=== PATIENT | female | born 1950 | race Caucasian/White ===

== ENCOUNTER → 2016-11-17 | Outpatient (CLI) | payer MEDICARE, OTHER ==
--- NOTE | 2016-11-17 11:24 | RADIOLOGY REPORT (SQ) ---
EXAM DESCRIPTION: KNEE LEFT 4 VIEW COMPLETED DATE/TIME: 11/17/2016 10:34 am REASON FOR STUDY: L KNEE PAIN M25.552 PAIN IN LEFT HIP M25.562 PAIN IN LEFT KNEE COMPARISON: None. NUMBER OF VIEWS: Four views. TECHNIQUE: AP, lateral, and both oblique radiographic images acquired of the left knee. LIMITATIONS: None. FINDINGS: MINERALIZATION: Normal. BONES: No acute fracture or dislocation. No worrisome bone lesions. JOINT: No suprapatellar knee joint effusion. Multiple small intra-articular loose bodies are seen al benito the posterior recess of the knee joint, dorsal to the distal femoral metaphysis. Moderate medial compartment, mild patellofemoral compartment joint space narrowing. Mild medial compartment and pat ellofemoral compartment bony spurring. SOFT TISSUES: No soft tissue swelling. No radio-opaque foreign body. OTHER: No other significant finding. IMPRESSION: No acute findings. Osteoarthritis patellofemoral and medial compartment left knee TECHNICAL DOCUMENTATION: JOB ID: [id number] [employer]- All Rights Reserved
--- NOTE | 2016-11-17 11:25 | RADIOLOGY REPORT (SQ) ---
EXAM DESCRIPTION: HIP LEFT AP/LATERAL COMPLETED DATE/TIME: 11/17/2016 10:34 am REASON FOR STUDY: L HIP PAIN M25.552 PAIN IN LEFT HIP M25.562 PAIN IN LEFT KNEE COMPARISON: None. NUMBER OF VIEWS: Two views. TECHNIQUE: AP pelvis and additional frog-leg view of the left hip. LIMITATIONS: None. FINDINGS: MINERALIZATION: Normal. LEFT HIP: No fracture or dislocation. Moderate joint space narrowing and bony spurring along the fem oral head and acetabular rim. RIGHT HIP: No fracture or dislocation. High-grade joint space narrowing, bulky bony spurring along t he right femoral head and acetabular rim. Large osteophyte along the inferior aspect of the right fe moral head PUBIS AND ISCHIUM: No fracture. PELVIS: No fracture. SACRUM: No fracture or dislocation. No worrisome bone lesions. LOWER LUMBAR SPINE: Disc space loss of height at L5-S1 with bilateral facet arthropathy at L4-5 and L 5-S1 SOFT TISSUES: No findings. OTHER: No other significant finding. IMPRESSION: Osteoarthritis both hips, right greater than left. No acute fracture left hip TECHNICAL DOCUMENTATION: JOB ID: [id number]- All Rights Reserved
== END ==
LOC: RAD 09:59
PROVIDERS: ATTEND Family Medicine Geriatric Medicine
DX: M25.552 Pain in left hip (principal); M25.562 Pain in left knee; M16.0 Bilateral primary osteoarthritis of hip; M17.12 Unilateral primary osteoarthritis, left knee

== ENCOUNTER → 2017-05-15 | Outpatient (CLI) | payer MEDICARE, OTHER ==
--- NOTE | 2017-05-15 19:13 | WOMENS IMAGING REPORT ---
EXAM DESCRIPTION: BILAT SCREENING MAMMO W/CAD COMPLETED DATE/TIME: 05/15/2017 2:57 pm REASON FOR STUDY: SCREENING MAMMO Z12.31 ENCNTR SCREEN MAMMOGRAM FOR MALIGNANT NEOPLASM OF CARMEN COMPARISON: Multiple since 2009 TECHNIQUE: Standard craniocaudal and mediolateral oblique views of each breast recorded using digita l acquisition. LIMITATIONS: None. FINDINGS: No masses, calcifications or architectural distortion. No areas of suspicion. Read with the assistance of CAD. .[facility] - R2 Cenova Version 1.3 .[facility] - R2 Cenova Version 1.3 .[facility] - R2 Cenova Version 2.4 .[facility] - R2 Cenova Version 2.4 .[facility] - R2 Whiskey [employer]terer Version 9.2 IMPRESSION: NORMAL MAMMOGRAM. BIRADS 1. BREAST DENSITY: a. The breasts are almost entirely fatty. BIRAD: 1 NEGATIVE RECOMMENDATION: ROUTINE SCREENING Please continue yearly screening in April 2018. Please consider bilateral screening tomosynthesis COMMENT: The patient has been notified of the results by letter per SA requirements. Additional no tification policies are in place for contacting patient with suspicious or incomplete findings. Quality ID #225: The [employer] recommends an annual screening mammogram for women aged 40 years or over. This facility utilizes a reminder system to ensure that all patients receive reminder letters, and/or direct phone calls for appointments. This includes reminders for routine scr eening mammograms, diagnostic mammograms, or other Breast Imaging Interventions when appropriate. Th is patient will be placed in the appropriate reminder system. The [employer] (ACR) has developed recommendations for screening MRI of the breast s in certain patient populations, to be used in conjunction with mammography. Breast MRI surveillanc e may be appropriate for women with more than 20% lifetime risk of developing breast cancer as deter mined by genetic testing, significant family history of the disease, or history of mantle radiation f or Hodgkins Disease. ACR Practice Guidelines 2008. TECHNICAL DOCUMENTATION: FINDING NUMBER: (1) ASSESSMENT: (1) JOB ID: [id number] [employer]- All Rights Reserved Reading location - IP/workstation name: [email or web address]
== END ==
LOC: WI 13:31
PROVIDERS: ATTEND Family Medicine Geriatric Medicine
DX: Z12.31 Encounter for screening mammogram for malignant neoplasm of breast (principal)
CPT/HCPCS: 77067

== ENCOUNTER → 2017-05-15 | Outpatient (CLI) | payer MEDICARE, OTHER ==
--- NOTE | 2017-05-15 14:39 | RADIOLOGY REPORT (SQ) ---
EXAM DESCRIPTION: CHEST PA/LAT COMPLETED DATE/TIME: 05/15/2017 2:12 pm REASON FOR STUDY: R05 COUGH COMPARISON: Two-view chest 05/14/2015, 12/21/2008 EXAM PARAMETERS: NUMBER OF VIEWS: two views TECHNIQUE: Digital Frontal and Lateral radiographic views of the chest acquired. RADIATION DOSE: NA LIMITATIONS: none FINDINGS: LUNGS AND PLEURA: No opacities, masses or pneumothorax. No pleural effusion. MEDIASTINUM AND HILAR STRUCTURES: No masses or contour abnormalities. HEART AND VASCULAR STRUCTURES: Heart normal size. No evidence for failure. BONES: No acute findings. HARDWARE: None in the chest. OTHER: No other significant finding. IMPRESSION: NO SIGNIFICANT RADIOGRAPHIC FINDING IN THE CHEST. TECHNICAL DOCUMENTATION: JOB ID: [id number] [employer]- All Rights Reserved Reading location - IP/workstation name: [email or web address]
== END ==
LOC: RAD 13:57
PROVIDERS: ATTEND Family Medicine Geriatric Medicine
DX: R05 Cough (principal)
CPT/HCPCS: 71046

== ENCOUNTER 2017-11-10 10:06 | Day surgery (SDC) | payer MEDICARE, OTHER ==
[~2017-11-10 10:06] MED LIST: BUPIVACAINE HCL 0.75% INJ/PF (7.5 MG/1 ML) 10 ML SDV OS PRN; FENTANYL CITRATE INJ/PF 100 MCG/2 ML AMPUL ONE; KETOROLAC TROMETHAMINE 0.45% 4 DROP/0.4 ML DROPERETTE OS PRN; LIDOCAINE 4% INJ/PF (40 MG/ML) 5 ML AMPUL OS PRN; MIDAZOLAM 2 MG/2 ML INJ ONE
[2017-11-10] MEDS: CYCLOPENTOLATE 0.2%/PHENYLEPHRINE 1% OPH SOLN 2 ML OS PRN ×3 (11:14→11:35)
[2017-11-10] MEDS: BESIFLOXACIN HCL 0.6% OPH SUSP 5 ML BOTTLE OS PRN ×4 (11:14→12:25)
[2017-11-10] MEDS: TROPICAMIDE 1% OPH SOLN 3 ML OS PRN ×3 (11:14→11:35)
[2017-11-10] MEDS: TETRACAINE HCL 0.5% OPH SOLN 0.6 ML DROPERETTE OS PRN ×2 (11:15→11:35)
[2017-11-10] MEDS: CHONDR SU A NA/HYALUR INTRAOC KIT (SURGICARE) ONE ×2 (12:13)
[2017-11-10] MEDS: EPINEPHRINE INJ/PF 1 MG/1 ML AMPULE ONE ×2 (12:13)
[2017-11-10] MEDS ORDERED: LIDOCAINE 1% INJ-PF (10 MG/ML) 30 ML SDV ONE (12:30)
--- NOTE | 2017-11-10 12:41 | [facility] OPERATIVE REPORT E ---
[facility] Operative Report NAME: LISY LANGLEY AGE: 67Y DATE OF SURGERY: 11/10/2017 ROOM: PREOPERATIVE DIAGNOSIS: Cataract, left eye. POSTOPERATIVE DIAGNOSIS: Cataract, left eye. PROCEDURE PERFORMED: Phacoemulsification with posterior chamber intraocular lens, left eye. SURGEON: BERTHA PEARCE M.D. ANESTHESIA: Topical with MAC. INDICATIONS FOR SURGERY: Difficulty reading words on TV. Best corrected visual acuity 20/60. PROCEDURE: The patient was brought to the operating room and placed on the operative table. Following tetracaine drops, topical anesthesia was administered. This consisted of instrument wipe pledgets soaked in a solution of 4% Xylocaine mixed with 0.75% Marcaine in a 1:2 ratio. A 2 x 1 cm pledget was placed in the superior fornix. A 1 x 1 cm pledget was placed in the inferior fornix. The eye was patched shut for 5 minutes. The patch was removed. The eye was sterilely prepped and draped in the usual manner. Lid speculum was placed in the eye. The pledgets were removed and 4-0 black silk sutures were placed around the superior and the inferior rectus muscles to be used as traction. A conjunctival peritomy was made at the 10 o'clock position. Hemostasis was obtained with bipolar cautery. A posterior limbal groove was created using a crescent knife and dissected anteriorly towards the cornea. A sharp point blade was used to create a paracentesis site at the 2 o'clock position. A 2.4 mm keratome was used to enter the anterior chamber through the groove. Viscoelastic was injected into the anterior chamber. An anterior capsulotomy was performed using Utrata forceps in a capsulorrhexis fashion. Hydrodissection and hydrodelineation were performed. Phacoemulsification was performed in ygytsd-hlg-maphqbo technique. Total phaco time was 4.91 CDE. Following this, the I/A unit was used to remove residual cortex. Viscoelastic was injected into the capsular bag. Intraocular lens model [id number], 17.5 diopters, serial number [id number], was placed in the capsular bag. The I/A unit was used to remove residual viscoelastic. The wound was seen to be watertight under high and low pressure, and no sutures were placed. The intraocular lens was well centered. The pressure was adjusted in the eye to normal pressure. The 4-0 black silk sutures and lid speculum were removed. The eye was shielded after Besivance drops were placed. The patient tolerated the procedure well and was sent to the recovery room in good condition. DICTATING PHYSICIAN: BERTHA PEARCE M.D. [id number] PHY#: [id number] ID: [id number] JOB#: [id number] ACCT: [id number] cc:BERTHA PEARCE M.D. >
--- NOTE | 2017-11-10 12:41 | [facility] DISCHARGE SUMMARY E ---
[facility] Discharge Summary NAME: LISY LANGLEY AGE: 67Y ADMITTED: 11/10/2017 DISCHARGED: 11/10/2017 FINAL DIAGNOSIS: Cataract, left eye. HOSPITAL COURSE: The patient is a 67-year-old lady who underwent uneventful cataract extraction with intraocular lens implant, left eye, on 11/10/2017. She will be discharged to home. She was instructed to resume preoperative medications; to take Tylenol as needed for discomfort; to keep her eye shielded; to use Durezol, Prolensa, and Besivance at 3 p.m. and 8 p.m.; and to follow up in my office in 1 day. DICTATING PHYSICIAN: BERTHA PEARCE M.D. [id number] PHY#: [id number] ID: [id number] JOB#: [id number] ACCT: [id number] cc:BERTHA PEARCE M.D. >
== END 2017-11-10 13:01 | disposition home or self-care (01) ==
LOC: SC 10:06
PROVIDERS: ATTEND Ophthalmology
DX: H25.812 Combined forms of age-related cataract, left eye (principal); H35.3221 Exudative age-related macular degeneration, left eye, with active choroidal neovascularization; H35.3111 Nonexudative age-related macular degeneration, right eye, early dry stage; H40.053 Ocular hypertension, bilateral; H10.45 Other chronic allergic conjunctivitis; Z96.1 Presence of intraocular lens; H52.4 Presbyopia; E78.00 Pure hypercholesterolemia, unspecified; M19.90 Unspecified osteoarthritis, unspecified site; I10 Essential (primary) hypertension; I51.9 Heart disease, unspecified; Z87.891 Personal history of nicotine dependence; Z79.82 Long term (current) use of aspirin; Z79.1 Long term (current) use of non-steroidal anti-inflammatories (NSAID); Z79.899 Other long term (current) drug therapy
CPT/HCPCS: 66984; V2632; J2250; J3490 ×4; A9270; J0171; 142; J3010

== ENCOUNTER → 2018-04-20 | Outpatient (CLI) | payer MEDICARE, OTHER ==
--- NOTE | 2018-04-20 11:31 | RADIOLOGY REPORT (SQ) ---
EXAM DESCRIPTION: HIP BILATERAL COMPLETED DATE/TIME: 04/20/2018 10:51 am REASON FOR STUDY: YUDI HIP PAIN, LOW BACK PAIN M25.551 PAIN IN RIGHT HIP M54.5 LOW BACK PAIN COMPARISON: None. NUMBER OF VIEWS: Two views. TECHNIQUE: AP pelvis and additional frog-leg view of the right and left hip. LIMITATIONS: None. FINDINGS: MINERALIZATION: Normal. PRIMARY HIP: Right hip demonstrates extensive degenerative changes joint space loss, bone on bone con tact, osteophytosis and subchondral sclerosis. No evidence of acute osseous abnormality. OPPOSITE HIP: There is moderate degenerative changes of the left hip with moderate joint space loss, subchondral sclerosis and osteophytosis PUBIS AND ISCHIUM: No fracture. PELVIS: No fracture. SACRUM: No fracture or dislocation. No worrisome bone lesions. LOWER LUMBAR SPINE: Lower lumbar spondylosis. No acute fracture. SOFT TISSUES: Scattered pelvic phleboliths. OTHER: No other significant finding. IMPRESSION: Severe right and moderate to severe left hip osteoarthritis. There is bone on bone cont act on the right. No evidence of acute bony abnormality. TECHNICAL DOCUMENTATION: JOB ID: [id number] [employer]- All Rights Reserved Reading location - IP/workstation name: [email or web address]
--- NOTE | 2018-04-20 13:37 | RADIOLOGY REPORT (SQ) ---
EXAM DESCRIPTION: SACRUM AND COCCYX COMPLETED DATE/TIME: 04/20/2018 10:51 am REASON FOR STUDY: YUDI HIP PAIN, LOW BACK PAIN M25.551 PAIN IN RIGHT HIP M54.5 LOW BACK PAIN COMPARISON: Same day radiograph NUMBER OF VIEWS: Three views. TECHNIQUE: AP, lateral, and tilt views of the sacrum and coccyx. LIMITATIONS: None. FINDINGS: MINERALIZATION: Normal. BONES: Degenerative changes at the hips, right greater than left. No acute bony abnormality. SOFT TISSUES: Scattered vascular calcifications. Pelvic phleboliths. OTHER: Mild lower lumbar degenerative change and facet arthropathy. IMPRESSION: No evidence of acute bony abnormality. Degenerative change at the hips, better evaluated on same day hip radiographs. TECHNICAL DOCUMENTATION: JOB ID: [id number] [employer]- All Rights Reserved Reading location - IP/workstation name: [email or web address]
== END ==
LOC: RAD 10:28
PROVIDERS: ATTEND Family Medicine Geriatric Medicine
DX: M25.551 Pain in right hip (principal); M54.5 Low back pain; M16.0 Bilateral primary osteoarthritis of hip
CPT/HCPCS: 72220; 73522

== ENCOUNTER 2018-07-12 04:05 | Observation (INO) | payer MEDICARE, OTHER ==
--- NOTE | 2018-07-12 08:57 | RADIOLOGY REPORT (SQ) ---
EXAM DESCRIPTION: CHEST SINGLE VIEW COMPLETED DATE/TIME: 07/12/2018 8:50 am REASON FOR STUDY: chest pain COMPARISON: 05/15/2017 EXAM PARAMETERS: NUMBER OF VIEWS: One view. TECHNIQUE: Single frontal radiographic view of the chest acquired. RADIATION DOSE: NA LIMITATIONS: None. FINDINGS: LUNGS AND PLEURA: No opacities, masses or pneumothorax. No pleural effusion. MEDIASTINUM AND HILAR STRUCTURES: No masses. Contour normal. HEART AND VASCULAR STRUCTURES: Heart normal in size. Normal vasculature. BONES: No acute findings. HARDWARE: None in the chest. OTHER: No other significant finding. IMPRESSION: 1. No significant interval changes since the previous examination dated 05/15/2017. No acute findings. TECHNICAL DOCUMENTATION: JOB ID: [id number] [employer]- All Rights Reserved Reading location - IP/workstation name: [email or web address]
[2018-07-12 09:30] LABS: ABSOLUTE BASOPHILS # (AUTO) 0.1 10^3/uL (0.0-0.2); ABSOLUTE LYMPHOCYTES (AUTO) 1.7 10^3/uL (0.5-4.7); ABSOLUTE MONOCYTES (AUTO) 0.5 10^3/uL (0.1-1.4); ABSOLUTE NEUT (AUTO) 5.3 10^3/uL (1.7-8.2); BASOPHILS % (AUTO) 0.7 % (0-2); EOSINOPHILS % (AUTO) 0.6 % (0-6); HEMATOCRIT 45.4 % (36.0-47.0); HEMOGLOBIN 15.6 g/dL (12.0-15.5); LYMPHOCYTES % (AUTO) 22.7 % (13-45); MEAN CORPUSCULAR HEMOGLOBIN 32.7 pg (27.0-33.4); MEAN CORPUSCULAR HGB CONC 34.3 g/dL (32.0-36.0); MEAN CORPUSCULAR VOLUME 95 fl (80-97); MONOCYTES % (AUTO) 6.5 % (3-13); PLATELET COUNT 270 10^3/uL (150-450); RED BLOOD COUNT 4.76 10^6/uL (3.72-5.28); RED CELL DISTRIBUTION WIDTH 13.8 % (11.5-14.0); SEGMENTED NEUTROPHILS % (AUTO) 69.5 % (42-78); TOTAL CELLS COUNTED % (AUTO) 100 %; WHITE BLOOD COUNT 7.7 10^3/uL (4.0-10.5)
[2018-07-12 09:33] LABS: APPEARANCE,URINE SLIGHTLY-CLOUDY; BILIRUBIN,URINE NEGATIVE (NEGATIVE); COLOR,URINE YELLOW; GLUCOSE, URINE NEGATIVE (NEGATIVE); KETONES,URINE 20 mg/dL (NEGATIVE); LEUKOCYTE ESTERASE,URINE TRACE (NEGATIVE); NITRITE,URINE NEGATIVE (NEGATIVE); PROTEIN,URINE 30 mg/dL (NEGATIVE); URINE SPECIFIC GRAVITY 1.019; UROBILINOGEN,URINE NEGATIVE mg/dL (<2.0)
[2018-07-12 09:34] LABS: ALANINE AMINOTRANSFERASE 26 U/L (9-52); ALBUMIN 4.5 g/dL (3.5-5.0); ALKALINE PHOSPHATASE 92 U/L (38-126); ANION GAP 10 (5-19); ASPARTATE AMINO TRANSFERASE 31 U/L (14-36); BILIRUBIN,DIRECT 0.3 mg/dL (0.0-0.4); BILIRUBIN,TOTAL 0.5 mg/dL (0.2-1.3); BLOOD UREA NITROGEN 9 mg/dL (7-20); CALCIUM 10.1 mg/dL (8.4-10.2); CARBON DIOXIDE 28 mmol/L (22-30); CHLORIDE 105 mmol/L (98-107); CREATINE KINASE 81 U/L (30-135); GLUCOSE 127 mg/dL (75-110); POTASSIUM 3.3 mmol/L (3.6-5.0); SODIUM 142.8 mmol/L (137-145); TOTAL PROTEIN 7.8 g/dL (6.3-8.2)
[2018-07-12 09:43] LABS: CREATINE KINASE MB 0.76 ng/mL (<4.55)
[2018-07-12 09:45] LABS: TROPONIN I < 0.012 ng/mL
--- NOTE | 2018-07-12 11:11 | ER Document Report ---
Entered by LUCY BARAJAS SCRIBE 07/12/18 0844 Acting as scribe for:SHAWN MADSEN MD ED General - General Chief Complaint: General Weakness Stated Complaint: WEAKNESS Time Seen by Provider: 07/12/18 08:22 Primary Care Provider: MEHRAN BAIRD MD [Primary Care Provider] - Follow up as needed Mode of Arrival: Ambulatory Information source: Patient Notes: Patient is a 68 year old female with macular degeneration, HTN presents to the emergency department complaining of chest pain onset this morning. Patient's associated symptoms include weakness, dizziness, and diaphoresis. Patient states she was awoken from her sleep with sharp left sided chest pain under her left breast with a severity of a 9/10. She states the pain radiated into her left scapular area and last approximately 45 minutes. She states during that time she was very dizzy and weak further stating "my arms felt like 3,000 lbs". She states she proceeded to take her blood pressure which was noted to be 196/120 and consumed juice. She states she is currently feeling much better. Patient's PCP is Dr. Baird. Patient reports that she did take 4 baby aspirin and drank some juice when she had the pain. She is thinking that some of the symptoms might of been due to low blood sugar so that is the reason for the juice. TRAVEL OUTSIDE OF THE [place] IN LAST 30 DAYS: No - Related Data Allergies/Adverse Reactions: Iodinated Contrast- Oral and IV Dye Allergy (Severe, Verified 11/10/17 11:19) Anaphylaxis Past Medical History - General Information source: Patient - Social History Smoking Status: Never Smoker Cigarette use (# per day): No Chew tobacco use (# tins/day): No Smoking Education Provided: No Frequency of alcohol use: None Lives with: Spouse/Significant other Family History: CAD - Mother 1st GA in mid 70s. CABG., Malignancy - Father - Past Medical History Cardiac Medical History: Reports: Hx Hypercholesterolemia, Hx Hypertension EENT Medical History: Reports: Eyes - Macular degeneration. Past Surgical History: Reports: Other - Bilateral cataract surgery Review of Systems - Review of Systems Constitutional: See HPI, Diaphoresis, Weakness EENT: Other - Poor vision at night Cardiovascular: See HPI, Chest pain, Dizziness Respiratory: No symptoms reported Gastrointestinal: No symptoms reported Genitourinary: No symptoms reported Female Genitourinary: No symptoms reported Musculoskeletal: See HPI, Back pain Skin: No symptoms reported Neurological/Psychological: No symptoms reported -: Yes All other systems reviewed and negative Physical Exam - Vital signs Vitals: Temp Pulse Resp BP Pulse Ox 98.0 F 71 18 195/96 H 96 07/12/18 04:37 07/12/18 04:37 07/12/18 04:37 07/12/18 04:37 07/12/18 04:37 - Notes Notes: GENERAL: Alert, interacts well. No acute distress. HEAD: Normocephalic, atraumatic. EYES: Pupils equal, round, and reactive to light. Extraocular movements intact. ENT: Oral mucosa moist, tongue midline. NECK: Full range of motion. Supple. Trachea midline. LUNGS: Clear to auscultation bilaterally, no wheezes, rales, or rhonchi. No respiratory distress. HEART: Regular rate and rhythm. No murmurs, gallops, or rubs. ABDOMEN: Soft, obese, non-tender. Non-distended. Bowel sounds present in all 4 quadrants. No guarding, rigidity, or rebound. EXTREMITIES: Moves all 4 extremities spontaneously. No edema. No cyanosis. NEUROLOGICAL: Alert and oriented x3. Normal speech. PSYCH: Normal affect, normal mood. SKIN: Warm, dry, normal turgor. No rashes or lesions noted. BACK: No tenderness to palpation. Course - Vital Signs Vital signs: Temp Pulse Resp BP Pulse Ox 98.3 F 74 12 162/78 H 95 07/12/18 07:51 07/12/18 07:51 07/12/18 10:02 07/12/18 10:02 07/12/18 10:02 - Laboratory Result Diagrams: 07/12/18 09:03 07/12/18 09:03 Laboratory results interpreted by me: 07/12/18 07/12/18 07/12/18 09:03 09:03 09:03 Hgb 15.6 H Potassium 3.3 L Glucose 127 H Urine Protein 30 H Urine Ketones 20 H Ur Leukocyte Esterase TRACE H Urine Ascorbic Acid 40 H - Diagnostic Test Radiology reviewed: Image reviewed, Reports reviewed - Chest x-ray does not show acute cardiopulmonary process - EKG Interpretation by Tn EKG shows normal: Sinus rhythm, [place], Intervals, QRS Complexes, ST-T Waves Rate: Normal - 76 Rhythm: NSR [place]/QRS: Left axis deviation - Consults Dr. Lovell Time consulted: 10:55 Consulted provider: will come to ER Discharge - Discharge Clinical Impression: Chest pain Qualifiers: Chest pain type: unspecified Qualified Code(s): R07.9 - Chest pain, unspecified High blood pressure Qualifiers: Hypertension type: essential hypertension Qualified Code(s): I10 - Essential (primary) hypertension Condition: Stable Disposition: ADMITTED INPATIENT Admitting Provider: Liliya (Hospitalist) Unit Admitted: Telemetry Referrals: MEHRAN BAIRD MD [Primary Care Provider] - Follow up as needed Scribe Attestation: 07/12/18 08:49 I personally performed the services described in the documentation, reviewed and edited the documentation which was dictated to the scribe in my presence, and it accurately records my words and actions. I personally performed the services described in the documentation, reviewed and edited the documentation which was dictated to the scribe in my presence, and it accurately records my words and actions.
[2018-07-12] MEDS ORDERED: LISINOPRIL 10 MG TABLET PO ONE (12:29)
[2018-07-12] MEDS: HYDROCHLOROTHIAZIDE 25 MG TABLET PO SCH (13:08)
--- NOTE | 2018-07-12 15:24 | EKG REPORT ---
SEVERITY:- ABNORMAL ECG - SINUS RHYTHM BORDERLINE LEFT AXIS DEVIATION NONSPECIFIC ST-T CHANGES- INFERIOR LEADS : Confirmed by: Naren Koo MD 12-Jul-2018 15:23:19
[2018-07-12 15:44] LABS: CREATINE KINASE MB 0.57 ng/mL (<4.55)
[2018-07-12 15:48] LABS: TROPONIN I < 0.012 ng/mL
[2018-07-12] MEDS ORDERED: IBUPROFEN 400 MG TABLET PO PRN (16:25)
--- NOTE | 2018-07-12 16:32 | PDOC H&P ---
History of Present Illness Admission Date/PCP: 07/12/18 11:15 MEHRAN LEON MD Patient complains of: Chest pain History of Present Illness: LISY LANGLEY is a 68 year old female who has had multiple EKGs as well as stress test and echocardiogram in the past. This was due to a "abnormal "EKG. She woke up from her sleep last night. She was very diaphoretic. She had a sharp pain from under her left breast through to the back. Her arms felt very heavy. She was experiencing a tingling sensation in her arms. She took 4 baby aspirin and this did give her relief. The pain lasted for proximally 45 minutes and resolved in the emergency department. The heaviness and tingling in her arms persisted for several hours. She had no associated shortness of breath or nausea. No symptoms radiated to her jaw. She denies any sense of chest pressure. She states that in the past she has had stress test and echocardiogram for what is felt to be an abnormal EKG but these have always been negative. Past Medical History Cardiac Medical History: Reports: Hyperlipidema, Hypertension Denies: Myocardial Infarction Pulmonary Medical History: Denies: Asthma EENT Medical History: Reports: Eyes - Macular degeneration. Neurological Medical History: Denies: Seizures GI Medical History: Denies: Hepatitis, Hiatal Hernia Skin Medical History: Reports: Other - Rosacea Hematology: Denies: Anemia, Sickle Cell Disease Past Surgical History Past Surgical History: Reports: Other - Bilateral cataract surgery Denies: Amputation, Mastectomy, Pacemaker Social History Information Source: Patient Lives with: Spouse/Significant other Smoking Status: Former Smoker Last Time Smoked: 2015 Frequency of Alcohol Use: None Hx Recreational Drug Use: No Hx Prescription Drug Abuse: No - Advance Directive Resuscitation Status: Full Code Surrogate healthcare decision maker:: The patient does not have a healthcare power of traffic law attorney at this time. Her is disabled. It would be excellent planning to establish such a document. Family History Family History: CAD - Mother 1st MD in mid 70s. CABG., Malignancy - Father Parental Family History Reviewed: Yes Children Family History Reviewed: Yes Sibling(s) Family History Reviewed.: Yes Medication/Allergy Home Medications: Ergocalciferol (Vitamin D2) [Drisdol 50,000 unit (1.25MG) Capsule] 50,000 unit PO MO@0800 07/12/18 Ezetimibe [Zetia 10 mg Tablet] 10 mg PO DAILY 07/12/18 Allergies/Adverse Reactions: Iodinated Contrast- Oral and IV Dye Allergy (Severe, Verified 11/10/17 11:19) Anaphylaxis Review of Systems Constitutional: PRESENT: night sweats. ABSENT: anorexia, fever(s), weight gain, weight loss Eyes: ABSENT: visual disturbances Ears: ABSENT: hearing changes Nose, Mouth, and Throat: ABSENT: mouth pain, sore throat Cardiovascular: PRESENT: chest pain. ABSENT: orthropnea, palpitations Respiratory: ABSENT: cough, sputum Gastrointestinal: ABSENT: abdominal pain, constipation, diarrhea, nausea, vomiting Genitourinary: ABSENT: dysuria, hematuria Integumentary: ABSENT: diaphoresis, erythema, rash Neurological: ABSENT: abnormal speech, confusion, frequent falls, memory loss, restless legs, tremor(s), vertigo Psychiatric: ABSENT: anxiety, depression Endocrine: ABSENT: cold intolerance, heat intolerance Hematologic/Lymphatic: ABSENT: easy bleeding, easy bruising Physical Exam Vital Signs: Temp Pulse Resp BP Pulse Ox 98.3 F 74 12 162/78 H 95 07/12/18 07:51 07/12/18 07:51 07/12/18 10:02 07/12/18 10:02 07/12/18 10:02 Intake & Output 07/11/18 07/12/18 07/13/18 06:59 06:59 06:59 Weight 109.2 kg General appearance: PRESENT: no acute distress, cooperative, obese, well- developed Head exam: PRESENT: atraumatic, normocephalic Eye exam: PRESENT: conjunctiva pink, EOMI. ABSENT: scleral icterus Mouth exam: PRESENT: dry mucosa, tongue midline Teeth exam: ABSENT: poor dentation Neck exam: PRESENT: full ROM. ABSENT: carotid bruit, JVD, lymphadenopathy Respiratory exam: PRESENT: clear to auscultation josh, symmetrical, unlabored. ABSENT: rales, rhonchi, tachypnea, wheezes Cardiovascular exam: PRESENT: RRR, +S1, +S2 GI/Abdominal exam: PRESENT: normal bowel sounds, soft. ABSENT: distended, tenderness Rectal exam: PRESENT: deferred Gentrourinary exam: ABSENT: indwelling catheter Extremities exam: ABSENT: calf tenderness, pedal edema Neurological exam: PRESENT: alert, awake, oriented to person, oriented to place, oriented to time, oriented to situation, CN II-XII grossly intact Psychiatric exam: PRESENT: appropriate affect, normal mood. ABSENT: agitated, anxious Focused psych exam: ABSENT: delusional, restlessness Results Laboratory Results: 07/12/18 09:03 07/12/18 09:03 07/12/18 07/12/18 07/12/18 09:03 09:03 09:03 WBC 7.7 RBC 4.76 Hgb 15.6 H Hct 45.4 MCV 95 MCH 32.7 MCHC 34.3 RDW 13.8 Plt Count 270 Seg Neutrophils % 69.5 Lymphocytes % 22.7 Monocytes % 6.5 Eosinophils % 0.6 Basophils % 0.7 Absolute Neutrophils 5.3 Absolute Lymphocytes 1.7 Absolute Monocytes 0.5 Absolute Eosinophils 0.0 Absolute Basophils 0.1 Sodium 142.8 Potassium 3.3 L Chloride 105 Carbon Dioxide 28 Anion Gap 10 BUN 9 Creatinine 0.53 Est GFR ( Amer) > 60 Est GFR (Non-Af Amer) > 60 Glucose 127 H Calcium 10.1 Total Bilirubin 0.5 AST 31 ALT 26 Alkaline Phosphatase 92 Total Protein 7.8 Albumin 4.5 Urine Color YELLOW Urine Appearance SLIGHTLY-CLOUDY Urine pH 6.0 Ur Specific [place] 1.019 Urine Protein 30 H Urine Glucose (UA) NEGATIVE Urine Ketones 20 H Urine Blood NEGATIVE Urine Nitrite NEGATIVE Ur Leukocyte Esterase TRACE H Urine WBC (Auto) 4 Urine RBC (Auto) 10 07/12/18 07/12/18 09:03 09:03 Creatine Kinase 81 CK-MB (CK-2) 0.76 Troponin I < 0.012 Impressions: Chest X-Ray 07/12/18 08:35 IMPRESSION: 1. No significant interval changes since the previous examination dated 05/15/2017. No acute findings. Assessment and Plan - Diagnosis (1) Chest pain Qualifiers: Chest pain type: unspecified Qualified Code(s): R07.9 - Chest pain, unspecified Is this a current diagnosis for this admission?: Yes Plan: The patient had an acute onset of sharp left-sided chest pain from under the breast through to her back. Her arms had associated heaviness and tingling. The pain is resolved. She did take 4 baby aspirin. EKG does not reveal any acute diagnostic changes. The patient has had a negative stress test and negative echocardiograms in the past. The patient has risk factors including family history, hypertension, hyperlipidemia and obesity. The patient will be a dmitted to telemetry. Serial cardiac enzymes will be drawn. If the enzymes increase we will obtain a stress test as an inpatient otherwise discharge with outpatient follow-up by cardiology. (2) Hypertension Qualifiers: Hypertension type: essential hypertension Qualified Code(s): I10 - Essential (primary) hypertension Is this a current diagnosis for this admission?: Yes Plan: Blood pressure is high this morning. She has not received medications yet. She will continue on lisinopril 40 mg and hydrochlorothiazide 25 mg. We will continue her Zetia as well. (3) Hypercholesterolemia Is this a current diagnosis for this admission?: Yes Plan: Continue Zetia 10 mg daily. Check lipid panel. (4) Osteoarthritis Qualifiers: Osteoarthritis location: multiple joints Osteoarthritis type: primary Qualified Code(s): M15.0 - Primary generalized (osteo)arthritis Is this a current diagnosis for this admission?: Yes Plan: The patient has multiple very sore joints. She typically walks with 2 canes. EMS did not bring her canes with her. She has not had any joint replacement surgery and is not anxious to do so. Symptomatic treatment at this time. (5) Hypokalemia Is this a current diagnosis for this admission?: Yes Plan: Serum potassium is low possibly due to diuretic therapy. I will initiate oral potassium chloride supplement and monitor her potassium level. - Time Time Spent with patient: 60 minutes Time Spent with patient: 35 or more minutes Medications reviewed and adjusted accordingly: Yes Anticipated discharge: Home Within: within 48 hours
[2018-07-12] MEDS ORDERED: POTASSIUM CHLORIDE 10 MEQ CAPSULE.ER PO ONE (17:30)
[2018-07-12] MEDS: ACETAMINOPHEN 325 MG TABLET PO PRN (21:34)
[2018-07-12 22:31] LABS: TROPONIN I < 0.012 ng/mL
[2018-07-13 03:57] LABS: ANION GAP 6 (5-19); BLOOD UREA NITROGEN 9 mg/dL (7-20); CALCIUM 9.9 mg/dL (8.4-10.2); CARBON DIOXIDE 31 mmol/L (22-30); CHLORIDE 104 mmol/L (98-107); CHOLESTEROL 207.54 mg/dL (0-200); GLUCOSE 102 mg/dL (75-110); POTASSIUM 3.6 mmol/L (3.6-5.0); SODIUM 140.9 mmol/L (137-145); TRIGLYCERIDES 110 mg/dL (<150)
[2018-07-13 04:02] LABS: CREATINE KINASE MB 1.06 ng/mL (<4.55)
[2018-07-13 04:06] LABS: TROPONIN I 0.014 ng/mL
[2018-07-13 04:07] LABS: DIRECT LDL 118 mg/dL (<100)
--- NOTE | 2018-07-13 07:52 | EKG REPORT ---
SEVERITY:- BORDERLINE ECG - SINUS RHYTHM BORDERLINE LEFT AXIS DEVIATION BORDERLINE T WAVE ABNORMALITIES INFERIOR LEADS. : Confirmed by: Naren Koo MD 13-Jul-2018 07:51:48
[2018-07-13] MEDS: HYDROCHLOROTHIAZIDE 25 MG TABLET PO SCH (09:28)
[2018-07-13] MEDS: ACETAMINOPHEN 325 MG TABLET PO PRN (09:38)
[2018-07-13] MEDS ORDERED: POTASSIUM CHLORIDE 10 MEQ CAPSULE.ER PO SCH (10:00)
[2018-07-13] MEDS ORDERED: LISINOPRIL 10 MG TABLET PO SCH (10:00)
[2018-07-13] MEDS ORDERED: ENOXAPARIN SODIUM INJ 40 MG/0.4 ML DISP.SYRIN SUBCUT SCH (10:00)
[2018-07-13] MEDS ORDERED: EZETIMIBE 10 MG TABLET PO SCH (10:00)
--- NOTE | 2018-07-13 13:43 | PDOC DISCHARGE SUMMARY ---
General - Admit/Disc Date/PCP Admission Date/Primary Care Provider: 07/12/18 11:15 MEHRAN LEON MD Discharge Date: 07/13/18 - Discharge Diagnosis (1) Chest pain Is this a current diagnosis for this admission?: Yes Summary: The patient had an acute onset of sharp left-sided chest pain from under the breast through to her back. Her arms had associated heaviness and tingling. Th e pain is resolved. She did take 4 baby aspirin. EKG does not reveal any acute diagnostic changes. The patient has had a negative stress test and negative echocardiograms in the past. The patient has risk factors including family history, hypertension, hyperlipidemia and obesity. The patient will be admitted to telemetry. Serial cardiac enzymes will be drawn. If the enzymes increase we will obtain a stress test as an inpatient otherwise discharge with outpatient follow-up by cardiology. 07/13/2018 68-year-old female came to the emergency room with complaints of chest pain. Recent stress test and echocardiogram was negative for acute pathology. She came in with questionable abnormal EKG. Cardiac enzymes are negative during the hospital stay. No acute events during the hospital stay. Patient chest pain-free this morning. He agreed to be discharged and she agreed to follow-up with Dr. Mckeon in 3 to 5 days. Patient is strongly advised to come to the emergency room [facility] if the chest pain recurs. Pain most likely musculoskeletal. (2) Hypertension Is this a current diagnosis for this admission?: Yes Summary: 07/13/2018-patient blood pressure today is 146/71. I wrote the prescription for lisinopril 40 mg p.o. daily, hydrochlorothiazide 25 mg p.o. daily. Low start diet and exercise recommended. (3) Hypercholesterolemia Is this a current diagnosis for this admission?: Yes Summary: 07/13/2018-cholesteremia's recent GDR 10 mg p.o. daily patient is advised to continue the medication at home. (4) Hypokalemia Is this a current diagnosis for this admission?: Yes Summary: 07/13/2018-patient came with hypokalemia today's potassium is 3.6 prescription was given for potassium supplementation. - Additional Information Resuscitation Status: Full Code Discharge Activity: Activity As Tolerated Prescriptions: Hydrochlorothiazide [Hydrodiuril 25 mg Tablet] 25 mg PO DAILY #30 tablet Lisinopril [Prinivil 10 mg Tablet] 40 mg PO DAILY #30 tablet Potassium Chloride [Klor-Con 10 Meq Capsule ER] 20 meq PO DAILY #15 capsule.er Home Medications: Ergocalciferol (Vitamin D2) [Drisdol 50,000 unit (1.25MG) Capsule] 50,000 unit PO MO@0800 07/12/18 Ezetimibe [Zetia 10 mg Tablet] 10 mg PO DAILY 07/12/18 Hydrochlorothiazide [Hydrodiuril 25 mg Tablet] 25 mg PO DAILY #30 tablet 07/13/18 Lisinopril [Prinivil 10 mg Tablet] 40 mg PO DAILY #30 tablet 07/13/18 Potassium Chloride [Klor-Con 10 Meq Capsule ER] 20 meq PO DAILY #15 capsule.er 07/13/18 History of Present Illness History of Present Illness: LISY LANGLEY is a 68 year old female Physical Exam Vital Signs: Temp Pulse Resp BP Pulse Ox 98.8 F 75 12 123/61 92 07/13/18 11:12 07/13/18 11:12 07/13/18 11:12 07/13/18 11:12 07/13/18 11:12 Intake & Output 07/12/18 07/13/18 07/14/18 06:59 06:59 06:59 Intake Total 320 355 Output Total 600 Balance 320 -245 Weight 109.2 kg 105.2 kg General appearance: PRESENT: no acute distress, obese Head exam: PRESENT: atraumatic Eye exam: PRESENT: PERRLA Mouth exam: PRESENT: moist, tongue midline Neck exam: ABSENT: carotid bruit, JVD, lymphadenopathy, thyromegaly Respiratory exam: PRESENT: clear to auscultation josh. ABSENT: rales, rhonchi, wheezes Cardiovascular exam: PRESENT: RRR. ABSENT: diastolic murmur, rubs, systolic m urmur GI/Abdominal exam: PRESENT: normal bowel sounds, soft. ABSENT: distended, guarding, mass, organolmegaly, rebound, tenderness Extremities exam: PRESENT: full ROM. ABSENT: calf tenderness, clubbing, pedal edema Neurological exam: PRESENT: alert, awake, oriented to person, oriented to place, oriented to time, oriented to situation, CN II-XII grossly intact. ABSENT: motor sensory deficit Psychiatric exam: PRESENT: appropriate affect, normal mood. ABSENT: homicidal ideation, suicidal ideation Results Laboratory Results: 07/12/18 09:03 07/13/18 03:00 07/13/18 03:00 Sodium 140.9 Potassium 3.6 Chloride 104 Carbon Dioxide 31 H Anion Gap 6 BUN 9 Creatinine 0.57 Est GFR ( Amer) > 60 Est GFR (Non-Af Amer) > 60 Glucose 102 Calcium 9.9 Triglycerides 110 Cholesterol 207.54 H LDL Cholesterol Direct 118 H VLDL Cholesterol 22.0 HDL Cholesterol 53 07/12/18 07/12/18 07/12/18 09:03 09:03 14:50 Creatine Kinase 81 75 CK-MB (CK-2) 0.76 Troponin I < 0.012 07/12/18 07/12/18 07/12/18 14:50 21:00 21:00 Creatine Kinase 97 CK-MB (CK-2) 0.57 0.80 Troponin I < 0.012 < 0.012 07/13/18 07/13/18 07/13/18 03:00 03:00 09:07 Creatine Kinase 143 H CK-MB (CK-2) 1.06 Troponin I 0.014 0.013 Impressions: Chest X-Ray 07/12/18 08:35 IMPRESSION: 1. No significant interval changes since the previous examination dated 05/15/2017. No acute findings. Qualifiers - * PATIENT BEING DISCHARGED WITH ANY OF THE FOLLOWING DIAGNOSIS: No VTE patient discharged on overlapping Therapy?: No
[2018-07-13 15:33] VITALS: BP 128/59
== END 2018-07-13 16:05 | disposition home or self-care (01) ==
LOC: ER 04:05 → INTOOBSV 11:15 → EH 11:15 → 5 22:25
PROVIDERS: ADMIT Hospitalist; ATTEND Hospitalist
DX: R07.9 Chest pain, unspecified (principal); E87.6 Hypokalemia; I10 Essential (primary) hypertension; E78.00 Pure hypercholesterolemia, unspecified; M15.0 Primary generalized (osteo)arthritis; H35.30 Unspecified macular degeneration; Z79.899 Other long term (current) drug therapy; Z87.891 Personal history of nicotine dependence; Z91.041 Radiographic dye allergy status
CPT/HCPCS: 93005 ×2; 99285; 36415 ×2; 82553 ×2; 82550 ×2; 85025; 80048; 80053; 81001; 84484 ×2; 80061; 71045; 93010 ×2; G0378 ×3; A9270 ×7; J1650; J3490

== ENCOUNTER → 2018-07-28 | Outpatient (CLI) | payer MEDICARE, OTHER ==
--- NOTE | 2018-07-28 16:59 | WOMENS IMAGING REPORT ---
EXAM DESCRIPTION: BILAT SCREENING MAMMO W/CAD COMPLETED DATE/TIME: 07/28/2018 3:29 pm REASON FOR STUDY: Z12.31 ROUTINE BILATERAL SCREENING Z12.31 ENCNTR SCREEN MAMMOGRAM FOR MALIGNANT N EOPLASM OF CARMEN COMPARISON: Multiple since 2009 TECHNIQUE: Standard craniocaudal and mediolateral oblique views of each breast recorded using [employer] l acquisition. LIMITATIONS: None. FINDINGS: No suspicious masses, suspicious calcifications or architectural distortion. No areas of s uspicion. Read with the assistance of CAD. .OM - R2 Division Controller Version 9.2 IMPRESSION: NORMAL MAMMOGRAM. BIRADS 1. BREAST DENSITY: a. The breasts are almost entirely fatty. BIRAD: 1 NEGATIVE RECOMMENDATION: ROUTINE SCREENING COMMENT: The patient has been notified of the results by letter per MQSA requirements. Additional no tification policies are in place for contacting patient with suspicious or incomplete findings. Quality ID #[id number]: [employer] recommends an annual screening mammogram for women aged 40 years or over. This facility utilizes a reminder system to ensure that all patients receive reminder letters, and/or direct phone calls for appointments. This includes reminders for routine scr eening mammograms, diagnostic mammograms, or other Breast Imaging Interventions when appropriate. Th is patient will be placed in the appropriate reminder system. TECHNICAL DOCUMENTATION: FINDING NUMBER: (1) ASSESSMENT: (1) JOB ID: [id number] [employer]- All Rights Reserved Reading location - IP/workstation name: [email or web address]
== END ==
LOC: WI 14:47
PROVIDERS: ATTEND Family Medicine Geriatric Medicine
DX: Z12.31 Encounter for screening mammogram for malignant neoplasm of breast (principal)
CPT/HCPCS: 77067

== ENCOUNTER → 2018-09-09 | Outpatient (CLI) | payer MEDICARE, OTHER | LOC: OD 12:18 | PROVIDERS: ATTEND Otolaryngology | DX: J30.9 Allergic rhinitis, unspecified (principal) | CPT/HCPCS: 36415; 82785; 86003 ==

== ENCOUNTER → 2018-09-09 | Outpatient (CLI) | payer MEDICARE, OTHER | LOC: OD 11:45 | PROVIDERS: ATTEND Otolaryngology | DX: Z53.9 Procedure and treatment not carried out, unspecified reason (principal) ==